=== PATIENT | female | born 1990 | race African-American/Black ===

== ENCOUNTER → 2021-01-23 | Emergency (ER) | payer OTHER | END | disposition left against medical advice (07) | LOC: ER 13:38 | DX: R05 Cough (principal); Z20.822 Contact with and (suspected) exposure to COVID-19; Z53.21 Procedure and treatment not carried out due to patient leaving prior to being seen by health care provider | CPT/HCPCS: 36415; 87426 ==

== ENCOUNTER → 2021-06-11 | Emergency (ER) | payer OTHER ==
[~2021-06-11] VITALS: Ht 165.1 cm; Wt 74.8 kg
[2021-06-11 02:30] VITALS: BP 121/86
[2021-06-11 03:49] LABS: Mean Corpuscular Hgb Conc. 30.7 g/dL (32.0-36.0)
[2021-06-11 03:51] LABS: Hematocrit 36.1 % (36.0-46.0); Hemoglobin 11.1 g/dL (12.2-16.2); Mean Corpuscular Hemoglobin 22.6 pg (28.0-32.0); Mean Corpuscular Volume 73.7 fL (80.0-100.0); White Blood Cell 3.7 10^3/uL (4.4-10.8)
[2021-06-11 04:06] LABS: Basophils % (manual) 0 (0.0-2.0); Blast Cells 0; Metamyelocytes % 0; Myelocytes % 0; Promyelocytes % 0; Reactive Lymphocytes 0
[2021-06-11 04:08] LABS: Albumin 3.9 g/dL (3.4-5.0); BUN/Creatinine Ratio 12.8; Potassium 4.3 mmol/L (3.5-5.1)
[2021-06-11 04:11] LABS: Bilirubin, Total 0.1 mg/dL (0.2-1.0); Total Protein 7.1 g/dL (6.4-8.2)
[2021-06-11 04:23] LABS: Band Neutrophils % (manual) 3; Eosinophils % (manual) 3 (0-7); Lymphocytes % (manual) 64 (10.0-50.0); Monocytes % (manual) 7 (0-12)
[2021-06-11 05:08] LABS: Urine Bacteria FEW /hpf (None Seen); Urine Blood Negative /uL (Negative); Urine Specific Gravity 1.011 (1.001-1.035); Urine WBC <1 /hpf (0 - 5)
== END | disposition home or self-care (01) ==
LOC: ER 02:28
DX: R10.30 Lower abdominal pain, unspecified (principal)
CPT/HCPCS: 36415; 80053; 81001; 84702; 85007; 85027

== ENCOUNTER 2021-07-29 08:18 | Emergency (ER) | payer MEDICAID, OTHER ==
[~2021-07-29] VITALS: Ht 162.6 cm; Wt 72.6 kg
[2021-07-29 08:42] VITALS: BP 138/88
[2021-07-29] MEDS ORDERED: KETOROLAC TROMETH 60MG/2ML VIAL IM ONE (08:45)
[2021-07-29] MEDS ORDERED: cefTRIAXone SOD 1,000 MG VL IM ONE (08:45)
[2021-07-29] MEDS ORDERED: LIDOCAINE 1% HCL (LOCAL ANESTH.) INJ 20ML MDV ONE (09:08)
[2021-07-29 09:09] LABS: Urine Bacteria NONE SEEN /hpf (None Seen); Urine Blood Negative /uL (Negative); Urine Specific Gravity 1.016 (1.001-1.035); Urine WBC 5 /hpf (0 - 5)
[2021-07-29] MEDS ORDERED: SULF800T7 PO (09:20)
[2021-07-29] MEDS ORDERED: IBUP800T27 PO (09:20)
== END 2021-07-29 09:37 | disposition home or self-care (01) ==
LOC: ER 08:18
DX: N39.0 Urinary tract infection, site not specified (principal)
CPT/HCPCS: 81001; 81025; 96372; 99284; J0696; J1885; J2001

== ENCOUNTER 2021-08-05 08:28 | Emergency (ER) | payer OTHER ==
[~2021-08-05] VITALS: Ht 162.6 cm; Wt 74.8 kg
[~2021-08-05 08:28] MED LIST: IBUP800T27 PO; SULF800T7 PO
[2021-08-05 09:14] LABS: Urine Bacteria FEW /hpf (None Seen); Urine Blood Negative /uL (Negative); Urine Specific Gravity 1.014 (1.001-1.035); Urine WBC 18 /hpf (0 - 5)
[2021-08-05] MEDS ORDERED: CEPH-509 PO (10:37)
[2021-08-05] MEDS ORDERED: cefTRIAXone SOD 1,000 MG VL IM ONE (10:45)
[2021-08-05 11:02] VITALS: BP 128/50
== END 2021-08-05 12:43 | disposition home or self-care (01) ==
LOC: ER 08:28
DX: N39.0 Urinary tract infection, site not specified (principal)
CPT/HCPCS: 81001; 81025; 87086; 96372; 99283; J0696

== ENCOUNTER 2024-11-17 11:48 | Emergency (ER) | payer MEDICAID ==
[~2024-11-17] VITALS: Ht 160 cm; Wt 77.2 kg
[~2024-11-17 11:48] MED LIST changes: +CEPH-509 PO; +IBUP-1456 PO; -IBUP800T27 PO; +SULF800T23 PO; -SULF800T7 PO
--- NOTE | 2024-11-17 12:12 | ED.PDOC ---
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 Patient reports that she is currently 4 weeks and has been experiencing suprapubic cramping for the past 6 days. Patient relays that she has associated bilateral knee and back pain. Patient states she has not seen her OBGYN yet. Patient denies any dysuria, hematuria, flank pain, dizziness, N/V/D, or fever. Chief Complaint: Pelvic Pain Time Seen by MD: 12:10 Reviewed Notes: Nurses Notes, Medications, Allergies Allergies: Coded Allergies: NO KNOWN ALLERGIES (Unverified , 01/23/21) Home Meds Active Scripts Cephalexin (KEFLEX 500) 500 Mg Cap, 1 CAP PO BID for 7 Days, #14 CAP 0 Refills Prov:YUNIEL WATSON 08/05/21 Sulfamethoxazole W/Trimethopri (Trimethoprim/Sulfamethoxa) 1 Tab Tab, 1 TAB PO BID for 7 Days, #14 TAB 0 Refills Prov:YUNIEL WATSON 07/29/21 Ibuprofen (Ibuprofen) 800 Mg Tab, 1 TAB PO TID PRN, #30 TAB 0 Refills Prov:YUNIEL WATSON 07/29/21 Information Source: Patient Mode of Arrival: Ambulatory Timing: Days Prehospital treatment: None Severity: Moderate Vaginal Discharge: None Vaginal Lesions: None Vaginal Mass: None Sexual Activity: Control: None History of: Current Associated Signs and Symptoms: Abdominal Pain, Cramping Past Medical History PAST MEDICAL HISTORY: UTI'S Surgical History (Other): Myomectomy COMPUTER NETWORK ENGINEER History: No Pertinent COMPUTER NETWORK ENGINEER History Family History Family History: Reviewed,noncontributory to illness Social History Smoker: Non-Smoker Alcohol: Denies ETOH Use Drugs: Denies Drug Use Lives In: Home Constitutional: denies: chills, diaphoresis, fatigue, fever, malaise, sweats, weakness, others EENTM: denies: blurred vision, double vision, ear bleeding, ear discharge, ear drainage, ear pain, ear ringing, eye pain, eye redness, hearing loss, mouth pain, mouth swelling, nasal discharge, nose bleeding, nose congestion, nose pain, photophobia, tearing, throat pain, throat swelling, voice changes, others Respiratory: denies: cough, hemoptysis, orthopnea, SOB at rest, shortness of breath, SOB with excertion, stridor, wheezing, others Cardiovascular: denies: chest pain, dizzy spells, diaphoresis, Dyspnea on exertion, edema, irregular heart beat, left arm pain, lightheadedness, palpitations, PND, syncope, others Gastrointestinal: reports: abdominal pain; denies: abdomen distended, blood streaked bowels, constipated, diarrhea, dysphagia, difficulty swallowing, hematemesis, melena, nausea, poor appetite, poor fluid intake, rectal bleeding, rectal pain, vomiting, others Genitourinary: reports: ; denies: abnormal vagina bleeding, burning, dyspareunia, dysuria, flank pain, frequency, hematuria, incontinence, pain, vagina discharge, urgency, others Neurological: denies: dizziness, fainting, headache, left sided numbness, left sided weakness, numbness, paresthesia, pre-existing deficit, right sided numbness, right sided weakness, seizure, speech problems, tingling, tremors, weakness, others Musculoskeletal: reports: back pain, others (Bilateral knee pain); denies: gout, joint pain, joint swelling, muscle pain, muscle stiffness, neck pain Integumetry: denies: bruises, change in color, change in hair/nails, dryness, laceration, lesions, lumps, rash, wounds, others Allergic/Immunocompromised: denies: Difficulty Healing, Frequent Infections, Hives, Itching, others Hematologic/Lymphatic: denies: anemia, blood clots, easy bleeding, easy bruising, swollen glands, others Endocrine: denies: excessive hunger, excessive sweating, excessive thirst, excessive urination, flushing, intolerance to cold, intolerance to heat, unexplained weight gain, unexplained weight loss, others Psychiatric: denies: anxiety, bipolar disorder, depression, hopeless, panic disorder, schizophrenia, sleepless, suicidal, others All Other Systems: Reviewed and Negative Physical Exam General Appearance: Mild Distress HEENT: Normal ENT Inspection, Pharynx Normal, TMs Normal Neck: Full Range of Motion, Non-Tender, Normal, Normal Inspection Respiratory: Chest Non-Tender, Lungs Clear, No Accessory Muscle Use, No Respiratory Distress, Normal Breath Sounds Cardiovascular: No Edema, No JVD, No Murmur, No Gallop, Normal Peripheral Pulses, Regular Rate/Rhythm Breast Exam: Deferred Gastrointestinal: No Organomegaly, Non Tender, No Pulsatile Mass, Normal Bowel Sounds, Soft Genitalia: Deferred Pelvic: Deferred Rectal: Deferred Extremities: No calf tenderness, Normal capillary refill, Normal inspection, Normal range of motion, Non-tender, No pedal edema Musculoskeletal : Apperance: Normal Neurologic: Alert, transport assistant II-XII nml as Tested, No Motor Deficits, Normal Affect, Normal Mood, No Sensory Deficits Cerebellar Function: Normal Reflexes: Normal Skin: Dry, Normal Color, Warm Lymphatic: No Adenopathy Was a procedure done? Was a procedure done?: No Differential Diagnosis (COMPUTER NETWORK ENGINEER) Vaginal Bleeding: - Complete, - Incomplete, - Inevitable X-Ray, Labs, Meds, VS Vital Signs Date Time Temp Pulse Resp B/P (MAP) Pulse Ox O2 Delivery O2 Flow Rate FiO2 11/17/24 14:50 98.1 94 16 124/78 (93) 99 98.1 11/17/24 14:50 94 16 99 Room Air* 0 21 11/17/24 12:09 97.9 54 16 133/63 (86) 95 97.9 Lab Test 11/17/24 14:24 11/17/24 12:19 11/17/24 12:02 Range/Units White Blood Count 5.5 4.4-10.8 10^3/uL Red Blood Count 5.28 H 4.0-5.20 10^6/uL Hemoglobin 15.0 12.2-16.2 g/dL Hematocrit 45.1 36.0-46.0 % Mean Corpuscular Volume 85.5 80.0-100.0 fL Mean Corpuscular Hemoglobin 28.4 28.0-32.0 pg Mean Corpuscular Hemoglobin Concent 33.2 32.0-36.0 g/dL Red Cell Distribution Width 12.5 11.8-14.3 % Platelet Count 213 140-450 10^3/uL Mean Platelet Volume 9.3 6.9-10.8 fL Neutrophils (%) (Auto) 52.1 37.0-80.0 % Lymphocytes (%) (Auto) 39.9 10.0-50.0 % Monocytes (%) (Auto) 7.3 0.0-12.0 % Eosinophils (%) (Auto) 0.5 0.0-7.0 % Basophils (%) (Auto) 0.2 0.0-2.0 % Neutrophils # (Auto) 2.9 1.6-8.6 10 ^3/uL Lymphocytes # (Auto) 2.2 0.4-5.4 10 ^3/uL Monocytes # (Auto) 0.4 0-1.3 10 ^3/uL Eosinophils # (Auto) 0 0-0.8 10 ^3/uL Basophils # (Auto) 0 0-0.2 10 ^3/uL Nucleated Red Blood Cells 0.1 % Prothrombin Time 11.3 9.3-11.8 sec Prothrombin Time INR 1.07 0.9-1.15 Activated Partial Thromboplast Time 30.3 24.5-34.5 SEC Beta HCG, Quantitative 98.7 H 1.5-4.2 mIU/mL Urine Color Colorless Yellow Urine Clarity Clear Clear Urine pH 7.0 5.0-9.0 Urine Specific [place] 1.008 1.001-1.035 Urine Protein Negative Negative Urine Ketones Negative Negative Urine Blood Negative Negative /uL Urine Nitrite Negative Negative Urine Bilirubin Negative Negative Urine Urobilinogen Normal Negative mg/dL Urine Leukocyte Esterase Negative Negative /uL Urine RBC 1 0 - 4 /hpf Urine Microscopic WBC 1 0-5 /HPF Urine Squamous Epithelial Cells Few <5 /hpf Urine Bacteria None seen None Seen /hpf Urine Glucose Normal Normal mg/dL IV Hep-Lock was established The CBC is within normal limits. The patient's urine test is negative for infection The quantitative hCG is 98.7 We did an ultrasound to rule out ectopic and it shows: IMPRESSION: vascular structure seen adjacent to the right adnexa with a ring of fire, this could represent corpus luteal versus ectopic. Correlate with serial beta hCGs. Critical Result: Possible ectopic At this time, we did consult with Dr. Lanza who is the OBGYN. She did evaluate the patient and she feels that she can safely discharge the patient home to return tomorrow for a repeat ultrasound as well as quantitative hCG The patient understands and agrees with the management The patient is being discharged Images Reviewed?: Images reviewed and evaluated by me Time of 1ST Reevaluation: 15:06 Reevaluation 1ST: Unchanged Time of 2ND Reevaluation: 15:29 Reevaluation 2ND: Unchanged Patient Education/Counseling: Diagnosis, Treatment, Prognosis, Need For Follow Up Family Education/Counseling: No Family Present Departure 1 Departure Time of Disposition: 15:05 Impression: Primary Impression: Ectopic Qualified Codes: O00.90 - Unspecified ectopic without intrauterine Disposition: 01 HOME / SELF CARE / HOMELESS Condition: Fair Discharged With: Self Critical Care Note Critical Care Time?: No Stability Stability form required: No Heart Score Heart Score: Heart Score Response (Comments) Value History N/A 0 EKG N/A 0 Age N/A 0 Risk Factors N/A 0 Troponin N/A 0 Total 0 I personally scribed for MARC MARTELL MD ([email or web address]) on 11/17/24 at 12:12. Electronically submitted by Lucius Malone ([email or web address]). MARC MARTELL MD Nov 17, 2024 12:12
[2024-11-17 13:59] LABS: Urine Bacteria None Seen /hpf (None Seen)
--- NOTE | 2024-11-17 14:12 | DVH ---
OB ULTRASOUND <14 WEEKS: HISTORY: pain TECHNIQUE: Multiple real-time grayscale sonographic images of the pelvis with duplex Doppler color f low, spectral and M-mode analysis. TRANSDUCERS: Transabdominal and transvaginal FINDINGS: The uterus measures 12 x 7 x 7 cm. The cervix was not seen Right ovary measures 3 x 3 x 2 cm with normal Doppler color flow Left ovary measures 3 x 2 x 3 cm with normal Doppler color flow Possible fibroids are present. Free fluid seen in the cul-de-sac and bilateral adnexa. There is vasc ular structure seen adjacent to the right adnexa IMPRESSION: vascular structure seen adjacent to the right adnexa with a ring of fire, this could represent corpu s luteal versus ectopic. Correlate with serial beta hCGs. Critical Result: Possible ectopic Findings discussed with MARC MARTELL at 11/17/2024 02:09 PM, and acknowledged receipt and understand ing of the findings.
[2024-11-17 14:23] LABS: Urine Blood Negative /uL (Negative); Urine Clarity Clear (Clear); Urine Color Colorless (Yellow); Urine Protein, UAD Negative (Negative); Urine Specific Gravity 1.008 (1.001-1.035); Urine Squamous Epithelial Cell FEW /hpf (<5); Urine Urobilinogen Normal (Negative); Urine WBC 1 /HPF (0-5)
[2024-11-17 14:48] LABS: Basophils # (auto) 0 10 ^3/uL (0-0.2); Basophils % (auto) 0.2 % (0.0-2.0); Eosinophils # (auto) 0 10 ^3/uL (0-0.8); Eosinophils % (auto) 0.5 % (0.0-7.0); Hematocrit 45.1 % (36.0-46.0); Lymphocytes # (auto) 2.2 10 ^3/uL (0.4-5.4); Lymphocytes % (auto) 39.9 % (10.0-50.0); Mean Corpuscular Hemoglobin 28.4 pg (28.0-32.0); Mean Corpuscular Hgb Conc. 33.2 g/dL (32.0-36.0); Mean Corpuscular Volume 85.5 fL (80.0-100.0); Monocytes # (auto) 0.4 10 ^3/uL (0-1.3); Monocytes % (auto) 7.3 % (0.0-12.0); Neutrophils # (auto) 2.9 10 ^3/uL (1.6-8.6); Neutrophils % (auto) 52.1 % (37.0-80.0); Nucleated Red Blood Cells % 0.1 %; Platelet Count (auto) 213 10^3/uL (140-450); Red Blood Cells 5.28 10^6/uL (4.0-5.20); Red Cell Distribution Width 12.5 % (11.8-14.3); White Blood Cell 5.5 10^3/uL (4.4-10.8)
[2024-11-17 14:50] VITALS: BP 124/78; PULSE 94; RESP 16; TEMP 98.1; O2SAT 99
[2024-11-17 14:53] LABS: INR 1.07 (0.9-1.15); Partial Thromboplastin Time 30.3 SEC (24.5-34.5); Prothrombin Time 11.3 sec (9.3-11.8)
[2024-11-17] MEDS ORDERED: KETAMINE 50mg/ML 1ml syringe ONE (15:12)
[2024-11-17] MEDS ORDERED: ROCURONIUM 10MG/ML 10ML VIAL IV ONE (15:13)
[2024-11-17] MEDS ORDERED: SODIUM CHLORIDE LOCK 40 ML ONE (15:13)
[2024-11-17] MEDS ORDERED: MIDAZOLAM HCL 2MG/2ML 2ml VIAL (1mg/ml) ONE (15:13)
[2024-11-17] MEDS ORDERED: fentaNYL CITRATE 5 ML ONE (15:13)
[2024-11-17] MEDS ORDERED: LIDOCAINE 1% INJ PF 5ML AMP ONE (15:13)
[2024-11-17] MEDS ORDERED: LIDOCAINE HCL 2% TOP JELLY 5ML TOP ONE (15:13)
[2024-11-17] MEDS ORDERED: fentaNYL CITRATE 100 MCG/2 ML VL ONE (15:13)
[2024-11-17] MEDS ORDERED: HYDROmorphone HCL 2 MG/ML VL/or syr ONE (15:13)
[2024-11-17] MEDS ORDERED: HYDROmorphone HCL 2 MG/ML VL/or syr IV PRN ×2 (15:15)
[2024-11-17] MEDS ORDERED: METOCLOPRAMIDE HCL 5MG/ml INJ 2ml VIAL IV ONE (15:15)
[2024-11-17] MEDS ORDERED: MORPHINE SULFATE 4 MG/ML SYR/VIAL IV PRN ×2 (15:15→16:06)
[2024-11-17] MEDS ORDERED: KETOROLAC TROMETH 30 MG/ML 1ML VIAL IV ONE (15:15)
--- NOTE | 2024-11-17 15:50 | DVHPN2 ---
Visit Coding OBGYN Date of Service: Nov 17, 2024 Billing Provider: LORRAINE HENDRICKSON DO AUTOMATIC DRILL OPERATOR Common Visit Codes: 27078-[id number] OBS CARE (HIGH) AUTOMATIC DRILL OPERATOR Consultation Codes: 87281-VISBEBXEX CONSULT <110MIN LORRAINE HENDRICKSON DO Nov 17, 2024 15:50
--- NOTE | 2024-11-17 20:28 | DVHINCON2 ---
DATE OF CONSULTATION: 11/17/2024 REASON FOR CONSULTATION: Rule out ectopic , with suprapubic pain. HISTORY OF PRESENT ILLNESS: The patient is a 34-year-old, 2, para 1 being seen in the Emergency Room for suprapubic cramping for 6 days. The patient has had no bleeding. No vaginal bleeding. Describes pain as not too uncomfortable. Also her ultrasound reveals 12 weeks' size uterus with possible corpus luteum versus ring of fire adnexa, some scant amount of clear fluid in the cul-de-sac. No echogenic or blood product. Her beta hCG is 98.7. The patient does not require any pain medication. The patient also gives history of myomectomy in 04/2024. PAST MEDICAL HISTORY: UTIs. PAST SURGICAL HISTORY: Myomectomy. SOCIAL HISTORY: None. FAMILY HISTORY: None. OBSTETRIC AND GYNECOLOGIC HISTORY: One normal vaginal delivery. ALLERGIES: No known drug allergies. REVIEW OF SYSTEMS: Consistent with HPI. PHYSICAL EXAMINATION: VITAL SIGNS: Stable, afebrile. GENERAL APPEARANCE: The patient appears comfortable. HEENT: Within normal limits. CARDIOVASCULAR: Regular rate and rhythm. LUNGS: Clear to auscultation. BREASTS: Symmetrical. No masses. ABDOMEN: Soft, nontender. No rigidity. No rebound. PELVIC: External genitalia within normal limits. Vagina: Normal. Cervix grossly normal. Uterus: 12 weeks' size, nontender. No bleeding noted. EXTREMITIES: No clubbing, cyanosis, or edema. IMPRESSION AND PLAN: Early with history of myomectomy and completely benign examination. I recommend the patient to return in a.m., for repeat labs, beta-hCG quantitative. The patient's differential diagnosis includes nonviable versus early , doubt, ectopic , however, the patient has been counseled to return in the event of any abnormal pain or abnormal bleeding. The patient expresses full understanding. All questions answered. The patient will return tomorrow morning at about 9:00 a.m. DO HERMAN Ervin TID: [id number] RECEIPT: [id number]
== END 2024-11-17 15:57 | disposition home or self-care (01) ==
LOC: ER 11:54
DX: O00.00 Abdominal pregnancy without intrauterine pregnancy (principal); Z98.890 Other specified postprocedural states; Z87.440 Personal history of urinary (tract) infections; Z3A.01 Less than 8 weeks gestation of pregnancy
CPT/HCPCS: 36415; 76801; 81001; 84702; 85025; 85610; 85730; 86850; 86900; 86901; 99284; J1171; J3010; J2250

== ENCOUNTER 2024-11-18 08:16 | Emergency (ER) | payer MEDICAID ==
[~2024-11-18] VITALS: Ht 160 cm; Wt 79.0 kg
--- NOTE | 2024-11-18 08:28 | ED.PDOC ---
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 Patient reports that she was seen yesterday in the ED for lower abdominal cramping while 4 weeks and she was told she may have an ectopic . Patient relays that she was advised by Dr. Lanza to follow up today for a repeat US and BHCG to rule out ectopic . Patient notes her cramping is still present. Patient denies any N/V, dizziness, vaginal bleeding, or dysuria. Time Seen by MD: 08:24 Reviewed Notes: Nurses Notes, Medications, Allergies Allergies: Coded Allergies: NO KNOWN ALLERGIES (Unverified , 01/23/21) Home Meds Active Scripts Cephalexin (KEFLEX 500) 500 Mg Cap, 1 CAP PO BID for 7 Days, #14 CAP 0 Refills Prov:YUNIEL WATSON 08/05/21 Sulfamethoxazole W/Trimethopri (Trimethoprim/Sulfamethoxa) 1 Tab Tab, 1 TAB PO BID for 7 Days, #14 TAB 0 Refills Prov:YUNIEL WATSON 07/29/21 Ibuprofen (Ibuprofen) 800 Mg Tab, 1 TAB PO TID PRN, #30 TAB 0 Refills Prov:YUNIEL WATSON 07/29/21 Information Source: Patient Mode of Arrival: Ambulatory Timing: Days Prehospital treatment: None Severity: Moderate Vaginal Discharge: None Vaginal Lesions: None Vaginal Mass: None Sexual Activity: Last Consensual [place]: Unknown Control: None History of: Current Associated Signs and Symptoms: Abdominal Pain, Cramping Past Medical History PAST MEDICAL HISTORY: UTI'S Surgical History: Denies all surgeries RN TRANSITIONAL History: No Pertinent RN TRANSITIONAL History Family History Family History: Reviewed,noncontributory to illness Social History Smoker: Non-Smoker Alcohol: Denies ETOH Use Drugs: Denies Drug Use Lives In: Home Constitutional: denies: chills, diaphoresis, fatigue, fever, malaise, sweats, weakness, others EENTM: denies: blurred vision, double vision, ear bleeding, ear discharge, ear drainage, ear pain, ear ringing, eye pain, eye redness, hearing loss, mouth pain, mouth swelling, nasal discharge, nose bleeding, nose congestion, nose pain, photophobia, tearing, throat pain, throat swelling, voice changes, others Respiratory: denies: cough, hemoptysis, orthopnea, SOB at rest, shortness of breath, SOB with excertion, stridor, wheezing, others Cardiovascular: denies: chest pain, dizzy spells, diaphoresis, Dyspnea on exertion, edema, irregular heart beat, left arm pain, lightheadedness, palpitations, PND, syncope, others Gastrointestinal: reports: abdominal pain; denies: abdomen distended, blood streaked bowels, constipated, diarrhea, dysphagia, difficulty swallowing, hematemesis, melena, nausea, poor appetite, poor fluid intake, rectal bleeding, rectal pain, vomiting, others Genitourinary: reports: ; denies: abnormal vagina bleeding, burning, dyspareunia, dysuria, flank pain, frequency, hematuria, incontinence, pain, vagina discharge, urgency, others Neurological: denies: dizziness, fainting, headache, left sided numbness, left sided weakness, numbness, paresthesia, pre-existing deficit, right sided numbness, right sided weakness, seizure, speech problems, tingling, tremors, weakness, others Musculoskeletal: denies: back pain, gout, joint pain, joint swelling, muscle pain, muscle stiffness, neck pain, others Integumetry: denies: bruises, change in color, change in hair/nails, dryness, laceration, lesions, lumps, rash, wounds, others Allergic/Immunocompromised: denies: Difficulty Healing, Frequent Infections, Hives, Itching, others Hematologic/Lymphatic: denies: anemia, blood clots, easy bleeding, easy bruising, swollen glands, others Endocrine: denies: excessive hunger, excessive sweating, excessive thirst, excessive urination, flushing, intolerance to cold, intolerance to heat, unexplained weight gain, unexplained weight loss, others Psychiatric: denies: anxiety, bipolar disorder, depression, hopeless, panic disorder, schizophrenia, sleepless, suicidal, others All Other Systems: Reviewed and Negative Physical Exam General Appearance: No Apparent Distress, Normal HEENT: Normal ENT Inspection, Pharynx Normal, TMs Normal Neck: Full Range of Motion, Non-Tender, Normal, Normal Inspection Respiratory: Chest Non-Tender, Lungs Clear, No Accessory Muscle Use, No Respiratory Distress, Normal Breath Sounds Cardiovascular: No Edema, No JVD, No Murmur, No Gallop, Normal Peripheral Pulses, Regular Rate/Rhythm Breast Exam: Deferred Gastrointestinal: No Organomegaly, Non Tender, No Pulsatile Mass, Normal Bowel Sounds, Soft Genitalia: Deferred Pelvic: Deferred Rectal: Deferred Extremities: No calf tenderness, Normal capillary refill, Normal inspection, Normal range of motion, Non-tender, No pedal edema Musculoskeletal : Apperance: Normal Neurologic: Alert, volunteer services assistant II-XII nml as Tested, No Motor Deficits, Normal Affect, Normal Mood, No Sensory Deficits Cerebellar Function: Normal Reflexes: Normal Skin: Dry, Normal Color, Warm Lymphatic: No Adenopathy Was a procedure done? Was a procedure done?: No Differential Diagnosis (RN TRANSITIONAL) Vaginal Bleeding: - Incomplete, - Threatened, Ectopic X-Ray, Labs, Meds, VS Vital Signs Date Time Temp Pulse Resp B/P (MAP) Pulse Ox O2 Delivery O2 Flow Rate FiO2 11/18/24 09:52 91 18 98 Room Air 11/18/24 09:52 98.4 91 18 138/63 (88) 98 98.4 11/18/24 08:33 98.7 97 16 140/79 (99) 98 98.7 Lab Test 11/18/24 08:26 Range/Units Beta HCG, Quantitative 122.2 H 1.5-4.2 mIU/mL Time of 1ST Reevaluation: 09:24 Reevaluation 1ST: Unchanged Patient Education/Counseling: Diagnosis, Treatment Family Education/Counseling: No Family Present Additional Information Previous visits reviewed: 11/17/24 for ectopic The following tests were ordered, and results were reviewed by me: VIDHYA bassett, OB US Additional Information was gathered from interviewing the following independent historians: None I reviewed and agreed with the following test results read by other providers: OB US I discussed treatment and results with medical personnel and: patient Comprehensive systems review obtained and negative except for what is stated in the HPI. Departure 1 Departure Time of Disposition: 10:42 (Patient went pelvic pain. Discussed the case with Dr. Holland who recommended the patient can be safely discharged home we will follow up with Dr. Lanza on Thursday.) Impression: Primary Impression: Threatened miscarriage in early Disposition: HOME / SELF CARE / HOMELESS Condition: Stable Referrals: LORRAINE LANZA DO Additional Instructions: Your ultrasound appeared the same as yesterday. Your betahcg was 120 today. It is important to follow up with Pool at her office on Thursday to recheck your blood levels and repeat an ultrasound. If your symptoms worsen or you have any other concerns then please return to the ER. Discharged With: Self Critical Care Note Critical Care Time?: No Stability Stability form required: No Heart Score Heart Score: Heart Score Response (Comments) Value History N/A 0 EKG N/A 0 Age N/A 0 Risk Factors N/A 0 Troponin N/A 0 Total 0 I personally scribed for STEVEN VALE MD ([email or web address]) on 11/18/24 at 08:28. Electronically submitted by Lucius Malone ([email or web address]). STEVEN VALE MD Nov 18, 2024 08:28
[2024-11-18 09:52] VITALS: BP 138/63; PULSE 91; RESP 18; TEMP 98.4; O2SAT 98
--- NOTE | 2024-11-18 10:07 | DVH ---
OB ULTRASOUND <14 WEEKS: HISTORY: per dr. youssef, follow up us TECHNIQUE: Multiple real-time grayscale sonographic images of the pelvis with duplex Doppler color f low, spectral and M-mode analysis. TRANSDUCERS: Transvaginal FINDINGS: The uterus measures 11.0 x 8.1 x 7.1 cm. The uterus is heterogeneous. Possible anechoic structure in the endometrium measuring 0.6 cm may represent a gestational sac with abnormal morphology. Right ovary measures 5.3 x 2.4 x 3.3 cm with normal Doppler color flow. There is a complex vascular s tructure adjacent to the right adnexa measuring 2.9 cm is unchanged compared to prior exam with trace adjacent free fluid. IMPRESSION: Possible anechoic structure in the endometrium measuring 0.6 cm may represent a gestational sac with abnormal morphology. Correlate with beta HCG and short-term follow-up pelvic ultrasound. There is a complex vascular structure adjacent to the right adnexa measuring 2.9 cm is unchanged comp ared to prior exam with trace adjacent free fluid. Ectopic not excluded.
== END 2024-11-18 10:58 | disposition home or self-care (01) ==
LOC: ER 08:16
DX: O20.0 Threatened abortion (principal); O26.891 Other specified pregnancy related conditions, first trimester; R10.2 Pelvic and perineal pain; Z3A.01 Less than 8 weeks gestation of pregnancy; Z87.440 Personal history of urinary (tract) infections; Z79.899 Other long term (current) drug therapy
CPT/HCPCS: 36415; 76817; 84702